=== PATIENT | female | born 1960 | race Caucasian/White ===

== ENCOUNTER → 2017-06-05 | Outpatient (CLI) | payer OTHER ==
[~2017-06-05] MED LIST: ISOVUE-370 76% 100ML VIAL (Q9967) As Ordered
== END ==
LOC: M RAD 10:34
DX: R07.0 Pain in throat (principal)
CPT/HCPCS: Q9967

== ENCOUNTER 2017-08-02 12:24 | Day surgery (SDC) | payer OTHER ==
[2017-08-02] MEDS: NS 1,000 ML IV (12:30)
[2017-08-02] MEDS ORDERED: PROPOFOL 200 MG/20 ML VIAL As Ordered (15:25)
[2017-08-02] MEDS ORDERED: LIDOCAINE 1% MDV 20ML VIAL As Ordered (15:26)
== END 2017-08-02 16:48 | disposition home or self-care (01) ==
LOC: M OPP 12:24
DX: R13.12 Dysphagia, oropharyngeal phase (principal); K22.70 Barrett's esophagus without dysplasia; K21.9 Gastro-esophageal reflux disease without esophagitis; K22.8 Other specified diseases of esophagus; I34.1 Nonrheumatic mitral (valve) prolapse; R12 Heartburn; D64.9 Anemia, unspecified; M35.00 Sjogren syndrome, unspecified; L71.9 Rosacea, unspecified; Z87.442 Personal history of urinary calculi; Z88.8 Allergy status to other drugs, medicaments and biological substances; Z88.1 Allergy status to other antibiotic agents; Z88.2 Allergy status to sulfonamides; Z91.013 Allergy to seafood; Z79.899 Other long term (current) drug therapy
CPT/HCPCS: 43249

== ENCOUNTER 2018-08-08 07:08 | Day surgery (SDC) | payer OTHER ==
[~2018-08-08] VITALS: Ht 149.9 cm; Wt 45.1 kg
[~2018-08-08 07:08] MED LIST changes: -ISOVUE-370 76% 100ML VIAL (Q9967) As Ordered; +LIDOCAINE 1% MDV 20ML VIAL SQ PRN; +MINERAL OIL OU; +NS 1,000 ML IV ONE; +PANT20TA2 PO; +RANI150C PO; +TOBROPO
[2018-08-08] MEDS ORDERED: fentaNYL 100 MCG/2 ML INJECTION (J3010) As Ordered ONE (07:15)
[2018-08-08] MEDS ORDERED: PROPOFOL 200 MG/20 ML VIAL As Ordered ONE (07:16)
[2018-08-08] MEDS ORDERED: LIDOCAINE 2% INJ 100 MG/5 ML SDV (FOR ANES.) As Ordered ONE (07:19)
--- NOTE | 2018-08-08 08:36 | ROOR ---
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 Procedure: Pre-Anesthesia Assessment: - The heart rate, respiratory rate, oxygen saturations, blood pressure, adequacy of pulmonary ventilation, and response to care were monitored throughout the procedure. The Endoscope was introduced through the mouth, and advanced to the second part of duodenum. The upper GI endoscopy was accomplished without difficulty. The patient tolerated the procedure well. Findings: A few benign-appearing, intrinsic mild (non-circumferential scarring) stenoses were found in the cricopharyngeus/upper and lower third of the esophagus. The stenoses were traversed. The scope was withdrawn. Dilation was performed with a Good dilator with no resistance at 50 Fr. The dilation site was examined following endoscope reinsertion and showed complete resolution of luminal narrowing. The Z-line was variable. This was biopsied with a cold forceps for histology. The entire examined stomach was normal. The examined duodenum was normal. 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 Dilated. - Z-line variable. Biopsied. - Normal stomach. - Normal examined duodenum. Recommendation: - Observe patient's clinical course. - You have severe acid reflux. The best preventative medication would be a PPI twice a day. (nexium, prilosec, protonix, prevacid, aciphex etc). As you are intolerant to these medications, I suggest you start at least Ranitidine 300 mg twice a day. Ethan Echavarria MD Ethan ECHAVARRIA MD 08/08/2018 8:35:24 AM Electronically signed by Ethan ECHAVARRIA MD Number of Addenda: 0 Note Initiated On: 08/08/2018 8:08 AM Estimated Blood Loss: Estimated blood loss: none.
[2018-08-08 08:45] VITALS: BP 130/66
== END 2018-08-08 08:59 | disposition home or self-care (01) ==
LOC: M OPP 07:08
PROVIDERS: ATTEND Internal Medicine Gastroenterology
DX: K22.2 Esophageal obstruction (principal); K22.8 Other specified diseases of esophagus; K22.70 Barrett's esophagus without dysplasia; R13.10 Dysphagia, unspecified; K21.9 Gastro-esophageal reflux disease without esophagitis; I34.1 Nonrheumatic mitral (valve) prolapse; Z09 Encounter for follow-up examination after completed treatment for conditions other than malignant neoplasm; Z79.899 Other long term (current) drug therapy; Z88.2 Allergy status to sulfonamides; Z88.8 Allergy status to other drugs, medicaments and biological substances
CPT/HCPCS: 43239; 43450; 88305; J3010

== ENCOUNTER → 2019-03-04 | Outpatient (CLI) | payer OTHER ==
[~2019-03-04] MED LIST changes: -LIDOCAINE 1% MDV 20ML VIAL SQ PRN; -NS 1,000 ML IV ONE
[2019-03-07 00:08] LABS: Lyme Disease IgG/IgM Antibodie <0.91 ISR (0.00-0.90); Lyme Disease IgM Ab Quantitati <0.80 index (0.00-0.79)
== END ==
LOC: M WUC 14:22
PROVIDERS: ATTEND Nurse Practitioner Family
DX: S10.86XA Insect bite of other specified part of neck, initial encounter (principal); W57.XXXA Bitten or stung by nonvenomous insect and other nonvenomous arthropods, initial encounter; Y92.9 Unspecified place or not applicable

== ENCOUNTER → 2019-05-26 | Outpatient (REF) | payer OTHER | LOC: M LAB REF 18:57 | PROVIDERS: ATTEND Dermatology | DX: D49.2 Neoplasm of unspecified behavior of bone, soft tissue, and skin (principal) ==

== ENCOUNTER 2019-09-30 17:35 | Emergency (ER) | payer OTHER ==
[~2019-09-30] VITALS: Ht 147.3 cm; Wt 45.6 kg
[2019-09-30 17:36] VITALS: BP 134/67
[2019-09-30] MEDS ORDERED: ERYTOIN8 TOP (17:49)
[2019-09-30] MEDS ORDERED: VALA500T5 PO (17:49)
[2019-09-30] MEDS ORDERED: SERT25TA21 PO (17:49)
--- NOTE | 2019-09-30 18:49 | REP ---
Clinical: Trauma. Technique: AP, lateral, bilateral oblique views of the right fourth digit. Findings: Soft tissue injury/laceration underlying the fourth digit distal phalanx noted. Small associated foreign body cannot be excluded. No obvious acute fracture. Moderate arthritic changes at the distal interphalangeal joints and to a lesser extent the proximal interphalangeal joints of the visualized 3-5th digits. Impression: Laceration and possible small foreign body material underlying the fourth digit distal phalanx. No obvious acute fracture dislocation. Electronically Signed by Jian Skaggs MD 09/30/2019 06:41 P
--- NOTE | 2019-10-02 13:03 | ED PDOC ---
Post-Departure Follow-Up dr coker faxed formal report of right fingers for fu Rikki Patrick MD October 02, 2019 13:03
== END 2019-09-30 18:56 | disposition home or self-care (01) ==
LOC: M ED 17:35
DX: S67.195A Crushing injury of left ring finger, initial encounter (principal); S61.218A Laceration without foreign body of other finger without damage to nail, initial encounter; W23.1XXA Caught, crushed, jammed, or pinched between stationary objects, initial encounter; Y92.009 Unspecified place in unspecified non-institutional (private) residence as the place of occurrence of the external cause; Z96.21 Cochlear implant status; Z79.899 Other long term (current) drug therapy; Z98.890 Other specified postprocedural states; Z88.2 Allergy status to sulfonamides; Z88.1 Allergy status to other antibiotic agents; Z88.8 Allergy status to other drugs, medicaments and biological substances

== ENCOUNTER 2019-11-25 05:58 | Emergency (ER) | payer OTHER ==
[~2019-11-25] VITALS: Ht 149.9 cm; Wt 43.6 kg
[~2019-11-25 05:58] MED LIST changes: +ERYTOIN8 OU; +SERT25TA21 PO; +VALA500T5 PO
[2019-11-25] MEDS ORDERED: NS 1,000 ML IV ONE (06:30)
[2019-11-25 06:45] LABS: BASO % 0.5 % (0.0-1.0); EOS # 0.1 10^3/uL (0.0-0.5); EOS % 1.8 % (0.0-3.0); HEMATOCRIT 37.6 % (36.0-47.0); HEMOGLOBIN 12.8 g/dl (12.0-15.5); LYMPH # 0.9 10^3/uL (1.5-5.0); LYMPH % 13.7 % (24.0-44.0); MEAN CORPUSCULAR HEMOGLOBIN 29.9 pg (27.0-33.0); MEAN CORPUSCULAR VOLUME 87.9 fl (80.0-96.0); MONO # 0.5 10^3/uL (0.0-0.8); MONO % 8.1 % (0.0-5.0); NEUTROPHILS % 75.6 % (36.0-66.0); PLATELET COUNT, AUTOMATED 192 10^3/uL (150-450); RED BLOOD COUNT 4.28 10^6/uL (4.00-5.40); WHITE BLOOD COUNT 6.7 10^3/uL (4.0-10.0)
[2019-11-25] MEDS ORDERED: ISOVUE-370 76% 100ML VIAL As Ordered ONE (06:52)
[2019-11-25] MEDS ORDERED: ONDANSETRON 4MG/2ML VIAL IV ONE (07:15)
[2019-11-25 07:21] LABS: ALBUMIN 3.8 GM/DL (3.2-5.2); BILIRUBIN,DIRECT 0.2 MG/DL (0.0-0.2); BILIRUBIN,TOTAL 0.6 MG/DL (0.2-1.0); TOTAL PROTEIN 7.6 GM/DL (6.4-8.2)
--- NOTE | 2019-11-25 07:26 | REPVR ---
PROCEDURE INFORMATION: Exam: CT Abdomen And Pelvis With Contrast Exam date and time: 11/25/2019 6:23 AM Age: 59 years old Clinical indication: Abdominal pain; Localized; Right lower quadrant (rlq); Additional info: Bloating, rlq pain TECHNIQUE: Imaging protocol: Computed tomography of the abdomen and pelvis with intravenous contrast. Radiation optimization: All CT scans at this facility use at least one of these dose optimization techniques: automated exposure control; mA and/or kV adjustment per patient size (includes targeted exams where dose is matched to clinical indication); or iterative reconstruction. Contrast material: ISO; Contrast volume: 93 ml; Contrast route: INTRAVENOUS (IV); COMPARISON: CT ABD PELVIS WITH CONTRAST 10/30/2014 3:37 AM FINDINGS: Mediastinal space: Small hiatal hernia. Liver: Liver is enlarged with mild diffuse fatty infiltration. Gallbladder and bile ducts: Normal. No calcified stones. No ductal dilation. Pancreas: Mild prominence of the pancreatic duct otherwise pancreas is unremarkable. Spleen: Normal. No splenomegaly. Adrenals: Normal. No mass. Kidneys and ureters: Normal. No hydronephrosis. Stomach and bowel: Moderate fecal loading in the colon. Few scattered colonic diverticula. Moderate thickening of the ascending colon with moderate surrounding inflammatory changes and small fluid. Findings most likely represent colitis secondary to inflammation or infection. Follow-up after treatment is recommended to rule out underlying mass. Small bowel is unremarkable. Appendix: No evidence of appendicitis. Intraperitoneal space: Small amount of free fluid in the pelvis. Vasculature: Unremarkable. No abdominal aortic aneurysm. Lymph nodes: Unremarkable. No enlarged lymph nodes. Bladder: Urinary bladder is not well distended and wall appears to be thickened likely secondary to nondistention. However, cystitis should be ruled out clinically. Reproductive: Cystic area in the left adnexa likely ovarian measuring 23 x 29 mm. Bones/joints: Levoscoliosis of the thoracolumbar spine. No acute fracture. Soft tissues: Unremarkable. IMPRESSION: Moderate fecal loading in the colon. Few scattered colonic diverticula. Moderate thickening of the ascending colon with moderate surrounding inflammatory changes and small fluid. Findings most likely represent colitis secondary to inflammation or infection. Follow-up after treatment is recommended to rule out underlying mass. Small bowel is unremarkable. Other findings as described above. Electronically signed by: Bettie Nunes On 11/25/2019 07:25:57 AM
[2019-11-25] MEDS ORDERED: PIPERACILLIN/TAZOBACTAM SOD 3.375 GM in D5W MINI-BAG PLUS 50 ML IV ONE (07:30)
[2019-11-25] MEDS ORDERED: MORPHINE 2 MG/ML 1ML VIAL (J2270) IV ONE (07:30)
[2019-11-25] MEDS ORDERED: SYSTOIN OU (07:38)
[2019-11-25] MEDS ORDERED: AUGMENTIN 875 MG TAB PO ONE (07:45)
[2019-11-25] MEDS ORDERED: AUGM875T28 PO (08:39)
[2019-11-25 08:49] VITALS: BP 120/57
--- NOTE | 2019-11-25 13:00 | ED PDOC ---
Post-Departure Follow-Up dr coker faxed formal report of cta bd/p for fu Rikki Patrick MD Nov 25, 2019 13:00
== END 2019-11-25 08:50 | disposition home or self-care (01) ==
LOC: M ED 05:58
DX: K52.9 Noninfective gastroenteritis and colitis, unspecified (principal); K21.9 Gastro-esophageal reflux disease without esophagitis; K22.70 Barrett's esophagus without dysplasia; Z87.442 Personal history of urinary calculi; R16.0 Hepatomegaly, not elsewhere classified; K57.30 Diverticulosis of large intestine without perforation or abscess without bleeding; Z79.899 Other long term (current) drug therapy; Z91.013 Allergy to seafood; Z88.2 Allergy status to sulfonamides; Z88.8 Allergy status to other drugs, medicaments and biological substances
CPT/HCPCS: 74177; 80047; 80076; 81001; 83690; 85025; 96361; 96374; 96375; 99284; J2270; J2405; Q9967

== ENCOUNTER → 2020-04-20 | Outpatient (CLI) | payer SELFPAY ==
[~2020-04-20] MED LIST changes: +AUGM875T28 PO; -PANT20TA2 PO; +PANT20TA6 PO; +SYSTOIN OU
== END ==
LOC: M LABSMTC 13:12
PROVIDERS: ATTEND Pediatrics
DX: Z11.59 Encounter for screening for other viral diseases (principal)

== ENCOUNTER → 2020-05-15 | Outpatient (CLI) | payer OTHER ==
[~2020-05-15] MED LIST changes: +CBD OIL PO
== END ==
LOC: M LABSMTC 08:13
PROVIDERS: ATTEND Anesthesiology
DX: Z01.812 Encounter for preprocedural laboratory examination (principal); Z20.828 Contact with and (suspected) exposure to other viral communicable diseases

== ENCOUNTER 2020-05-20 09:19 | Day surgery (SDC) | payer OTHER ==
[~2020-05-20] VITALS: Ht 148.6 cm; Wt 43.5 kg
[~2020-05-20 09:19] MED LIST changes: +LIDOCAINE 2% 100MG/5ML SDV (FOR ANES.) As Ordered ONE; +NS 1,000 ML IV ONE
[2020-05-20] MEDS ORDERED: fentaNYL 100 MCG/2 ML INJECTION (J3010) As Ordered ONE (10:02)
[2020-05-20] MEDS ORDERED: propofoL 200 MG/20 ML VIAL As Ordered ONE (10:02)
[2020-05-20] MEDS ORDERED: NOXI1TAB PO (10:20)
[2020-05-20] MEDS ORDERED: propofoL 500 MG/50 ML VIAL As Ordered ONE (10:21)
[2020-05-20] MEDS ORDERED: ePHEDrine SULFATE 25 MG/5 ML(5MG/ML) SYRINGE As Ordered ONE (11:27)
--- NOTE | 2020-05-20 11:30 | ROOR ---
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 Procedure: Pre-Anesthesia Assessment: - The heart rate, respiratory rate, oxygen saturations, blood pressure, adequacy of pulmonary ventilation, and response to care were monitored throughout the procedure. The Endoscope was introduced through the mouth, and advanced to the second part of duodenum. The upper GI endoscopy was accomplished without difficulty. The patient tolerated the procedure well. Findings: The Z-line was variable and was found 35 cm from the incisors. Biopsies were taken with a cold forceps for histology. A non-obstructing Schatzki ring was found at the gastroesophageal junction. A TTS dilator was passed through the scope. Dilation with a 15-16.5-18 mm balloon dilator was performed to 18 mm. The dilation site was examined and showed complete resolution of luminal narrowing. Four biopsies were obtained in the middle third of the esophagus and in the lower third of the esophagus with cold forceps for evaluation of eosinophilic esophagitis. The entire examined stomach was normal. The examined duodenum was normal. Dry mucosal membranes/Xerostomia Impression: - Z-line variable, 35 cm from the incisors. Biopsied for r/o recurrent barretts esophagus. - Non-obstructing Schatzki ring. Dilated. - Biopsies were obtained in the middle third of the esophagus and in the lower third of the esophagus for r/o eosinophilic esophagitis. - Normal stomach. - Normal examined duodenum. Recommendation: - Observe patient's clinical course. - Continue present medications. Procedure Code(s): --- Professional --- 40002, Esophagogastroduodenoscopy, flexible, transoral; with transendoscopic balloon dilation of esophagus (less than 30 mm diameter) 15589, 59, Esophagogastroduodenoscopy, flexible, transoral; with biopsy, single or multiple Diagnosis Code(s): --- Professional --- K22.8, Other specified diseases of esophagus K22.2, Esophageal obstruction K22.70, Ritchie's esophagus without dysplasia R13.10, Dysphagia, unspecified Z09, Encounter for follow-up examination after completed treatment for conditions other than malignant neoplasm CPT copyright 2019 [employer]. All rights reserved. The codes documented in this report are preliminary and upon surgical coder review may be revised to meet current compliance requirements. Ethan Echavarria MD Ethan ECHAVARRIA MD 05/20/2020 11:30:52 AM Electronically signed by Ethan ECHAVARRIA MD Number of Addenda: 0 Note Initiated On: 05/20/2020 11:03 AM Estimated Blood Loss: Estimated blood loss: none.
[2020-05-20] MEDS ORDERED: LIDOCAINE 2% JELLY 5ML TUBE As Ordered ONE (11:44)
[2020-05-20] MEDS ORDERED: LIDOCAINE 5% OINT 30 GM As Ordered ONE (11:45)
--- NOTE | 2020-05-20 11:51 | ROOR ---
Patient Name: Fatoumata Hayden Procedure Date: 05/20/2020 11:04 AM Date of : 1960 Age: 60 Room: [facility] Gender: Female Note Status: Finalized Procedure: Colonoscopy Indications: Abnormal CT of the GI tract Providers: Ethan ECHAVARRIA MD Referring MD: Stacie Nieto DO Requesting Provider: Medicines: Monitored Anesthesia Care Complications: No immediate complications. Procedure: Pre-Anesthesia Assessment: - The heart rate, respiratory rate, oxygen saturations, blood pressure, adequacy of pulmonary ventilation, and response to care were monitored throughout the procedure. The Colonoscope was introduced through the anus and advanced to the terminal ileum, with identification of the appendiceal orifice and IC valve. The colonoscopy was performed without difficulty. The patient tolerated the procedure well. The quality of the bowel preparation was good. Findings: The perianal and digital rectal examinations were normal. Retroflexion in the right colon was performed. Mild sigmoid diverticulosis and small internal hemorrhoids. The exam was otherwise without abnormality. Biopsies for histology were taken with a cold forceps from the entire colon for evaluation of microscopic colitis. Impression: - Minimal sigmoid diverticulosis and small internal hemorrhoids. - The colon examination was otherwise normal. - Biopsies were taken with a cold forceps from the entire colon for evaluation of microscopic colitis. Recommendation: - Continue present medications. - Telephone endoscopist for pathology results in 2 weeks. Procedure Code(s): --- Professional --- 83724, Colonoscopy, flexible; with biopsy, single or multiple Diagnosis Code(s): --- Professional --- R93.3, Abnormal findings on diagnostic imaging of other parts of digestive tract CPT copyright 2019 [employer]. All rights reserved. The codes documented in this report are preliminary and upon senior [employer] consultant review may be revised to meet current compliance requirements. Ethan Echavarria MD Ethan ECHAVARRIA MD 05/20/2020 11:51:09 AM Electronically signed by Ethan ECHAVARRIA MD Number of Addenda: 0 Note Initiated On: 05/20/2020 11:04 AM Estimated Blood Loss: Estimated blood loss: none.
[2020-05-20 12:15] VITALS: BP 110/62
== END 2020-05-20 12:24 | disposition home or self-care (01) ==
LOC: M OPP 09:19
PROVIDERS: ATTEND Internal Medicine Gastroenterology
DX: R93.3 Abnormal findings on diagnostic imaging of other parts of digestive tract (principal); R13.10 Dysphagia, unspecified; D12.6 Benign neoplasm of colon, unspecified; K57.30 Diverticulosis of large intestine without perforation or abscess without bleeding; K64.8 Other hemorrhoids; D13.0 Benign neoplasm of esophagus; K22.8 Other specified diseases of esophagus; K22.2 Esophageal obstruction; K22.70 Barrett's esophagus without dysplasia; R12 Heartburn; D64.9 Anemia, unspecified; Z88.2 Allergy status to sulfonamides; Z88.8 Allergy status to other drugs, medicaments and biological substances; Z91.013 Allergy to seafood; Z91.030 Bee allergy status; Z79.899 Other long term (current) drug therapy; Z80.3 Family history of malignant neoplasm of breast; Z80.1 Family history of malignant neoplasm of trachea, bronchus and lung; Z80.0 Family history of malignant neoplasm of digestive organs; Z80.42 Family history of malignant neoplasm of prostate; Z82.49 Family history of ischemic heart disease and other diseases of the circulatory system; Z83.3 Family history of diabetes mellitus

== ENCOUNTER → 2021-04-03 | Outpatient (CLI) | payer OTHER ==
[~2021-04-03] MED LIST changes: -LIDOCAINE 2% 100MG/5ML SDV (FOR ANES.) As Ordered ONE; +NOXI1TAB PO; -NS 1,000 ML IV ONE
--- NOTE | 2021-04-03 11:48 | REP ---
INDICATION: ARTHRITIS COMPARISON: None. TECHNIQUE: AP, lateral, bilateral oblique views right and left hand. FINDINGS: The bilateral hands are relatively symmetric. There is early advanced arthritic changes primarily involving the bilateral 2nd through 5th distal interphalangeal joints as well as the 1st metacarpophalangeal joints and 5th proximal interphalangeal joint. Findings include subchondral sclerosis, joint space narrowing, and marginal spurring/osteophyte formation. The bilateral wrists demonstrate relatively age-related changes including increased sclerosis along the radial surface with mild radiocarpal joint space narrowing. Evidence for suspected old healed left ulnar styloid fracture. No further acute or obvious healed injury is appreciated. IMPRESSION: Degenerative changes as noted above. <Electronically signed by Jian Skaggs > 04/03/21 [id number]
[2021-04-03 14:09] LABS: C REACTIVE PROTEIN QUANTITATIV < 0.30 MG/DL (0.00-0.30); RHEUMATOID FACTOR QUANT 10.5 IU/ML (<15.0)
== END ==
LOC: M WUC 10:38
PROVIDERS: ATTEND Internal Medicine
DX: M25.50 Pain in unspecified joint (principal); Z01.84 Encounter for antibody response examination; M19.041 Primary osteoarthritis, right hand; M19.042 Primary osteoarthritis, left hand

== ENCOUNTER → 2022-03-09 | Outpatient (REF) | payer OTHER | LOC: M LAB REF 16:09 | PROVIDERS: ATTEND Internal Medicine | DX: M25.50 Pain in unspecified joint (principal) ==

== ENCOUNTER → 2022-05-28 | Outpatient (REF) | payer OTHER | LOC: M PLALAB 16:29 | PROVIDERS: ATTEND Nurse Practitioner Family | DX: Z12.4 Encounter for screening for malignant neoplasm of cervix (principal) | CPT/HCPCS: 87624; G0123 ==

== ENCOUNTER → 2022-06-10 | Outpatient (CLI) | payer OTHER | LOC: M LABSMTC 11:30 | PROVIDERS: ATTEND Anesthesiology | DX: Z01.812 Encounter for preprocedural laboratory examination (principal); Z11.52 Encounter for screening for COVID-19 ==

== ENCOUNTER 2022-06-12 06:44 | Day surgery (SDC) | payer OTHER ==
[~2022-06-12] VITALS: Ht 147.3 cm; Wt 45.8 kg
[~2022-06-12 06:44] MED LIST changes: +NS 1,000 ML IV ONE; +SIMETHICONE 40MG/0.6ML DROPS 30ML As Ordered ONE
[2022-06-12] MEDS ORDERED: LIDOCAINE 1% SDV 5ML VIAL SC PRN (07:10)
[2022-06-12] MEDS ORDERED: fentaNYL 100 MCG/2 ML INJECTION As Ordered ONE (07:33)
[2022-06-12] MEDS ORDERED: propofoL 500 MG/50 ML VIAL As Ordered ONE (07:33)
[2022-06-12] MEDS ORDERED: LIDOCAINE 2% 100MG/5ML SDV (FOR ANES.) As Ordered ONE (07:33)
[2022-06-12] MEDS ORDERED: ONDANSETRON 4MG 2ML VIAL As Ordered ONE (07:49)
[2022-06-12 08:15] VITALS: BP 125/61
== END 2022-06-12 08:25 | disposition home or self-care (01) ==
LOC: M OPP 06:44
PROVIDERS: ATTEND Internal Medicine Gastroenterology
DX: K22.70 Barrett's esophagus without dysplasia (principal); K22.89 Other specified disease of esophagus; K21.00 Gastro-esophageal reflux disease with esophagitis, without bleeding; K22.2 Esophageal obstruction; Z09 Encounter for follow-up examination after completed treatment for conditions other than malignant neoplasm; Z79.2 Long term (current) use of antibiotics; Z88.2 Allergy status to sulfonamides; Z88.8 Allergy status to other drugs, medicaments and biological substances; Z91.013 Allergy to seafood; Z91.030 Bee allergy status; I34.1 Nonrheumatic mitral (valve) prolapse; M35.00 Sjogren syndrome, unspecified; Z87.442 Personal history of urinary calculi; Z85.828 Personal history of other malignant neoplasm of skin; Z80.42 Family history of malignant neoplasm of prostate
CPT/HCPCS: 43239; 43450; 88305; J2405; J3010

== ENCOUNTER → 2022-09-12 | Outpatient (REF) | payer OTHER ==
[~2022-09-12] MED LIST changes: -NS 1,000 ML IV ONE; -SIMETHICONE 40MG/0.6ML DROPS 30ML As Ordered ONE
[2022-09-12 18:34] LABS: C REACTIVE PROTEIN QUANTITATIV < 0.40 MG/DL (<1.0)
[2022-09-12 18:37] LABS: RHEUMATOID FACTOR QUANT 17.5 IU/ML (<14)
[2022-09-14 21:07] LABS: ANTI DOUBLE STRAND-DNA AB <1 IU/mL (0-9); ANTINUCLEAR ANTIBODIES DIRECT Positive (Negative); CYCLIC CITRULLINATED PEPTIDE 10 units (0-19); RNP ANTIBODIES 0.4 AI (0.0-0.9); SJOGREN'S ANTI SS-A >8.0 AI (0.0-0.9); SJOGREN'S ANTI SS-B >8.0 AI (0.0-0.9); SMITH ANTIBODIES <0.2 AI (0.0-0.9)
== END ==
LOC: M LAB REF 16:30
PROVIDERS: ATTEND Nurse Practitioner Family
DX: M35.09 Sjogren syndrome with other organ involvement (principal); M06.4 Inflammatory polyarthropathy

== ENCOUNTER → 2023-03-11 | Outpatient (REF) | payer OTHER | LOC: M LAB REF 16:43 | PROVIDERS: ATTEND Internal Medicine | DX: M06.4 Inflammatory polyarthropathy (principal) ==

== ENCOUNTER → 2023-09-24 | Outpatient (CLI) | payer OTHER | LOC: M RAD 09:12 | PROVIDERS: ATTEND Internal Medicine | DX: G43.109 Migraine with aura, not intractable, without status migrainosus (principal) ==

== ENCOUNTER → 2023-12-05 | Outpatient (REF) | payer OTHER | LOC: M SFHCWAGY 15:06 | PROVIDERS: ATTEND Nurse Practitioner Family | DX: Z12.4 Encounter for screening for malignant neoplasm of cervix (principal) ==

== ENCOUNTER → 2024-06-04 | Outpatient (CLI) | payer OTHER | LOC: M WUC 15:48 | PROVIDERS: ATTEND Internal Medicine | DX: M25.512 Pain in left shoulder (principal) ==

== ENCOUNTER → 2024-12-09 | Outpatient (REF) | payer OTHER ==
[~2024-12-09] MED LIST changes: +LUBROIN4 OU
== END ==
LOC: M SFHCWAGY 10:14
PROVIDERS: ATTEND Nurse Practitioner Family
DX: Z12.4 Encounter for screening for malignant neoplasm of cervix (principal); Z01.419 Encounter for gynecological examination (general) (routine) without abnormal findings; Z77.9 Other contact with and (suspected) exposures hazardous to health